=== PATIENT | female | born 1945 | race Hispanic/Latino ===

== ENCOUNTER 2017-10-04 08:58 | Outpatient (CLI) | payer MEDICARE, OTHER ==
--- NOTE | 2017-10-04 12:55 | XRay Report ---
XRAY LEFT HIP THREE VIEWS: 10/04/17 08:58:00 CLINICAL: Left hip pain. FINDINGS: Image quality is degraded by body habitus and inability of the patient to hold still. No fracture or dislocation. Moderate osteoarthritis with mild narrowing of joint space and superior acetabular eburnation. Small superior and inferior osteophytes. Similar changes in the right hip. The pelvic bones are intact. Vascular calcifications. IMPRESSION: Moderate osteoarthritis.
--- NOTE | 2017-10-04 13:21 | XRay Report ---
XRAY RIGHT SHOULDER THREE VIEWS: 10/04/17 08:58:00 CLINICAL: Right shoulder pain. No comparison study. FINDINGS: A transverse impacted fracture at the surgical neck of the humerus. There is some callus at the lateral aspect of the proximal humerus and humeral head. There is rather heterogeneous density in humeral neck and in the lateral aspect of the humeral head. Normal glenohumeral alignment. Normal AC joint. Normal soft tissues. IMPRESSION: A subacute transverse impacted closed healing fracture of the surgical neck of the humerus. The heterogeneous density of the humeral neck and head raises the possibility of a pathologic fracture. However, this finding may also related to superimposed callus along with focal osteopenia in the proximal humerus. A previous x-ray at the time of fracture may be more definitive in determining if this is a pathologic fracture.
== END 2017-10-04 08:59 | disposition home or self-care (01) ==
LOC: SPVIMAG 08:58
PROVIDERS: ATTEND Orthopaedic Surgery Sports Medicine
DX: M16.12 Unilateral primary osteoarthritis, left hip (principal); M25.511 Pain in right shoulder; S42.211D Unspecified displaced fracture of surgical neck of right humerus, subsequent encounter for fracture with routine healing; X58.XXXD Exposure to other specified factors, subsequent encounter

== ENCOUNTER 2017-11-07 14:29 | Outpatient (CLI) | payer MEDICARE, OTHER ==
--- NOTE | 2017-11-07 16:09 | XRay Report ---
XRAY RIGHT SHOULDER THREE VIEWS: 11/07/17 14:29:00 CLINICAL: Followup proximal humerus fracture. COMPARISON: 10/04/17 FINDINGS: A subacute impacted fracture at the surgical neck of the humerus with slightly less distinct fracture lines compared to the prior exam. Stable callus. The density of the humerus is less heterogeneous and less suspicious for a pathologic lesion than on the prior exam. Normal glenohumeral alignment. Normal AC joint. Normal soft tissues. IMPRESSION: Healing comminuted impacted fracture of the surgical neck of the humerus.
== END 2017-11-07 14:30 | disposition home or self-care (01) ==
LOC: SPVIMAG 14:29
PROVIDERS: ATTEND Orthopaedic Surgery Sports Medicine
DX: S42.211D Unspecified displaced fracture of surgical neck of right humerus, subsequent encounter for fracture with routine healing (principal); X58.XXXD Exposure to other specified factors, subsequent encounter

== ENCOUNTER 2017-12-17 09:56 | Outpatient (CLI) | payer MEDICARE, OTHER ==
--- NOTE | 2017-12-17 12:14 | XRay Report ---
XRAY RIGHT SHOULDER THREE VIEWS: 12/17/17 09:56:00 CLINICAL: Followup fracture. COMPARISONS: 11/07/17 and 10/04/17 FINDINGS: Subacute impacted fracture at the surgical neck of the humerus. Increased callus and less distinct fracture lines compared to the last exam. Normal glenohumeral alignment. The acromioclavicular joint is normal. Normal soft tissues. IMPRESSION: Healing comminuted impacted fracture of the surgical neck of the humerus with increased callus.
== END 2017-12-17 09:57 | disposition home or self-care (01) ==
LOC: SPVIMAG 09:56
PROVIDERS: ATTEND Orthopaedic Surgery Sports Medicine
DX: S42.211D Unspecified displaced fracture of surgical neck of right humerus, subsequent encounter for fracture with routine healing (principal); X58.XXXD Exposure to other specified factors, subsequent encounter